=== PATIENT | male | born 2000 ===

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

== ENCOUNTER 2019-01-02 07:21 | Emergency (ER) | payer BC ==
[2019-01-02 07:44] VITALS: BP 108/64
--- NOTE | 2019-01-02 08:38 | UC ---
General HPI - HPI Summary HPI Summary: Was seen in Urgent care on 12/19 - Neg flu and strep and was sent home on Amoxicillin. Stated he just finished the antibiotics 2 days ago and yesterday he noted sore throat and congestion, H/A and post nasal drip. Fever here. Decrease appetite. Taking fluids ok. Mild body aches. No cough. No rash. No N/V/D. UTD on vaccines. MEds: Reviewed - History of Current Complaint Chief Complaint: UCGeneralIllness Stated Complaint: SORE THROAT Time Seen by Provider: 01/02/19 08:00 Pain Intensity: 8 - Allergy/Home Medications Allergies/Adverse Reactions: Allergies Allergy/AdvReac Type Severity Reaction Status Date / Time No Known Allergies Allergy Verified 01/02/19 07:45 PMH/Surg Hx/FS Hx/Imm Hx Previously Healthy: Yes - Surgical History Surgical History: None - Social History Alcohol Use: Weekly Substance Use Type: Marijuana Smoking Status (MU): Never Smoked Tobacco Review of Systems All Other Systems Reviewed And Are Negative: Yes Constitutional: Positive: Fever ENT: Positive: Sore Throat, Sinus Congestion Respiratory: Positive: Negative Cardiovascular: Positive: Negative Gastrointestinal: Positive: Negative Genitourinary: Positive: Negative Physical Exam Triage Information Reviewed: Yes Appearance: Well-Appearing Vital Signs: Initial Vital Signs Temp 100.3 F 01/02/19 07:38 Pulse 104 01/02/19 07:38 Resp 18 01/02/19 07:38 BP 108/64 01/02/19 07:38 Pulse Ox 97 01/02/19 07:38 Vital Signs Reviewed: Yes ENT: Positive: Pharyngeal erythema, Nasal congestion, TMs normal, Tonsillar swelling Neck: Positive: Supple, Enlarged Nodes @ - anterior cervical chain Respiratory: Positive: Lungs clear, Normal breath sounds Cardiovascular: Positive: RRR, Tachycardia Abdomen Description: Positive: Soft, Other: - diffuse tenderness. No rebound or guarding Skin Exam: Normal Course/Dx - Course Course Of Treatment: This is a 18 yr old with sore throat and congestion Assessment Nontoxic appearing Rapid strep: Negative Plan Continue supportive care Continue ibuprofen 600 mg every 4-6 hours as needed for pain/fever - take with food Continue decongestant and nasal spray as directed Continue to rest and drink plenty of fluids If symptoms persist or worsen, follow up at [facility] or return to urgent care We will contact you if your mono studies are positive - avoid physical contact sports until results return - Diagnoses Provider Diagnosis: Viral syndrome Discharge - Sign-Out/Discharge Documenting (check all that apply): Patient Departure All imaging exams completed and their final reports reviewed: No Studies - Discharge Plan Condition: Fair Disposition: HOME Referrals: No Primary Care Phys,NOPCP [Primary Care Provider] - Additional Instructions: Continue supportive care Continue ibuprofen 600 mg every 4-6 hours as needed for pain/fever - take with food Continue decongestant and nasal spray as directed Continue to rest and drink plenty of fluids If symptoms persist or worsen, follow up at [facility] or return to urgent care We will contact you if your mono studies are positive - avoid physical contact sports until results return - Billing Disposition and Condition Condition: FAIR Disposition: Home
[2019-01-03 12:00] LABS: EBV Capsid Ag IgG Ab Positive (Negative); EBV Capsid Ag IgM Ab Negative (Negative); Epstein-Barr Nuclear Antigen Positive (Negative)
== END 2019-01-02 08:55 | disposition home or self-care (01) ==
LOC: UCEAST 07:21
DX: B34.9 Viral infection, unspecified (principal)
CPT/HCPCS: 36415; 86308; 86664; 86665; 87651; 99211; G0463